=== PATIENT | female | born 1950 | race Caucasian/White ===

== ENCOUNTER 2021-11-29 12:58 | Observation (INO) | payer MEDICARE ==
[2021-11-29] MEDS ORDERED: Iopamidol-370 76% 500 ML 1 ML ONE (13:15)
[2021-11-29 13:36] LABS: #Eosinphils 0.7 thou/uL (0.0-0.7); #Lymphocytes 1.7 thou/uL (1.20-3.40); #Monocytes 0.6 thou/uL (0.11-0.59); #Neutrophils 3.4 thou/uL (1.40-6.50); %Basophils 0.2 % (0.0-1.0); %Eosinophils 10.5 % (0.0-10.0); %Lymphocytes 26.5 % (21.0-51.0); %Monocytes 9.4 % (0.0-10.0); %Neutrophils 53.3 % (42.0-75.0); Hemoglobin 10.9 g/dL (12.0-16.0); Mean Corpuscular HGB CONC 32.3 g/dL (32.0-36.0); Mean Corpuscular Hemoglobin 31.9 pg (27.0-31.0); Mean Corpuscular Volume 98.6 fL (78.0-98.0); Mean Platelet Volume 7.4 fL (7.4-10.4); Platelet Count 297 thou/uL (130-400); Red Blood Cell (RBC) Count 3.43 mill/uL (4.20-5.40); White Blood Cell (WBC) Count 6.3 thou/uL (4.8-10.8)
[2021-11-29 13:50] LABS: ALT (SGPT) 11 U/L (8-55); AST (SGOT) 17 U/L (5-34); Albumin 4.1 g/dL (3.4-4.8); Alkaline Phosphatase 68 U/L (40-110); Anion Gap 15 mmol/L (10-20); BUN (Urea Nitrogen) 19 mg/dL (9.8-20.1); Bilirubin, Total 0.3 mg/dL (0.2-1.2); CK (CPK) 183 U/L (29-168); Calc. Creatinine Clearance 0 mL/min (70-130); Calcium 8.8 mg/dL (7.8-10.44); Carbon Dioxide 21 mmol/L (23-31); Chloride 112 mmol/L (98-107); Estimated GFR 60; Globulin 2.6 g/dL (2.4-3.5); Glucose 85 mg/dL (83-110); Magnesium 1.8 mg/dL (1.6-2.6); Potassium 3.7 mmol/L (3.5-5.1); Protein, Total 6.7 g/dL (5.8-8.1); Sodium 144 mmol/L (136-145)
[2021-11-29] MEDS ORDERED: Acetaminophen 500 MG TAB ONE (16:59)
[2021-11-29] MEDS ORDERED: Acetaminophen 325 MG TAB PO PRN (18:11)
[2021-11-29] MEDS ORDERED: Ondansetron PF 4 MG/2 ML Vial IVP PRN (18:11)
[2021-11-29] MEDS ORDERED: Bisacodyl 5 MG TAB PO PRN (18:11)
[2021-11-29] MEDS ORDERED: Acetaminophen 650 MG Suppository PR PRN (18:11)
[2021-11-29] MEDS ORDERED: Senokot S 8.6-50 MG TAB PO PRN (18:11)
[2021-11-29] MEDS ORDERED: Guaifenesin DM 100-10/5 ML UDCUP PO PRN (18:11)
[2021-11-29] MEDS ORDERED: Calcium Carbonate 500 MG ChewTAB PO PRN (18:11)
[2021-11-29] MEDS ORDERED: Bisacodyl 10 MG SUPP PR PRN (18:11)
[2021-11-29] MEDS ORDERED: Ondansetron ODT 4 MG TAB PO PRN (18:11)
[2021-11-29] MEDS ORDERED: Sodium Chloride 0.9% 1,000 ML IV SCH (18:15)
[2021-11-29 19:04] LABS: Troponin I Less than 0.010 ng/mL (< 0.028)
[2021-11-29 19:32] VITALS: BMI 24.3
[2021-11-29] MEDS ORDERED: DULoxetine 60 MG CAP PO SCH (21:00)
[2021-11-29] MEDS ORDERED: Aripiprazole 10 MG TAB PO SCH (21:00)
[2021-11-29] MEDS ORDERED: Non-Formulary Item 1 EACH (Alendronate Sodium [Alendronate Sodium] 35 MG Tablet) PO SCH (21:00)
[2021-11-29] MEDS ORDERED: Bupropion 150 MG XL TAB PO SCH (21:00)
[2021-11-29 21:26] LABS: Troponin I Less than 0.010 ng/mL (< 0.028)
[2021-11-29] MEDS: Lisinopril 20 MG TAB PO SCH (22:06)
[2021-11-29] MEDS: Hyoscyamine Sulfate SL 0.125 mg Tablet SL SCH (22:06)
[2021-11-29] MEDS: Dicyclomine 20 MG TAB PO SCH (22:07)
[2021-11-30 05:11] LABS: Anion Gap 13 mmol/L (10-20); BUN (Urea Nitrogen) 14 mg/dL (9.8-20.1); CK (CPK) 123 U/L (29-168); Calc. Creatinine Clearance 68 mL/min (70-130); Calcium 8.2 mg/dL (7.8-10.44); Carbon Dioxide 21 mmol/L (23-31); Chloride 113 mmol/L (98-107); Estimated GFR 80; Glucose 89 mg/dL (83-110); Magnesium 1.8 mg/dL (1.6-2.6); Potassium 3.7 mmol/L (3.5-5.1); Sodium 143 mmol/L (136-145)
[2021-11-30] MEDS: Dicyclomine 20 MG TAB PO SCH (10:00)
[2021-11-30] MEDS: Hyoscyamine Sulfate SL 0.125 mg Tablet SL SCH (10:00)
[2021-11-30] MEDS: Lisinopril 20 MG TAB PO SCH (10:01)
[2021-11-30 13:27] VITALS: BP 158/88; TEMP 98.2
[2021-11-30] MEDS ORDERED: Atorvastatin Calcium 20 MG TAB PO SCH (21:00)
== END 2021-11-30 14:38 | disposition home or self-care (01) ==
LOC: ERS 12:58 → 2NO 18:16
PROVIDERS: ADMIT Internal Medicine; ATTEND Internal Medicine
DX: R55 Syncope and collapse (principal); I10 Essential (primary) hypertension; E78.5 Hyperlipidemia, unspecified; K50.919 Crohn's disease, unspecified, with unspecified complications; K44.9 Diaphragmatic hernia without obstruction or gangrene; I34.0 Nonrheumatic mitral (valve) insufficiency; Z85.3 Personal history of malignant neoplasm of breast; Z79.83 Long term (current) use of bisphosphonates; Z79.899 Other long term (current) drug therapy; Z88.0 Allergy status to penicillin; Z20.822 Contact with and (suspected) exposure to COVID-19; W17.2XXA Fall into hole, initial encounter
CPT/HCPCS: 70450; 71275; 72125; 80048; 80053; 82550 ×2; 83735 ×2; 84484 ×2; 85025; 93005; 93306; 93880; 96360; 99285; G0378 ×3; U0003; U0005; 36415; J7050; Q9967